=== PATIENT | male | born 1965 | race Caucasian/White ===

== ENCOUNTER → 2018-11-22 | Outpatient (CLI) | payer OTHER ==
--- NOTE | 2018-11-22 13:07 | NM ---
EXAMINATION TYPE: NM bone 3 phase DATE OF EXAM: 11/22/2018 COMPARISON: 2 views of the left ankle dated 11/08/2018 HISTORY: M 86.9, bone infection, ankle Triple phase bone scintigraphy was performed following the injection of 25.3 mCi Tc 99m MDP. Immedia te images and 3.5 hours post injection images acquired. FINDINGS: There is very subtle increased blood flow to the left distal tibia and blood THE left distal tibia. D elayed images demonstrate focal radiotracer uptake within the left tibia that is more avid than the r emaining sites of uptake on delayed imaging. Multifocal uptake of the right midfoot and hindfoot as w ell as left midfoot are likely on a degenerative basis. IMPRESSION: 1. Persistent focal uptake greater than background of the left distal tibia that would relate to oste omyelitis in the appropriate clinical setting. 2. Degenerative change of the bilateral hindfeet and mid feet, right greater than left.
== END | disposition home or self-care (01) ==
LOC: RADNMMAIN 07:07
PROVIDERS: ATTEND Internal Medicine Infectious Disease
DX: M89.8X7 Other specified disorders of bone, ankle and foot (principal)
CPT/HCPCS: 78315; A9503

== ENCOUNTER → 2019-08-16 | Outpatient (CLI) | payer OTHER ==
[2019-08-16 10:41] LABS: Basophils # (A) 0.1 k/uL (0-0.2); Basophils % (A) 1 %; Eosinophils # (A) 0.1 k/uL (0-0.7); Eosinophils % (A) 2 %; HGB 15.6 gm/dL (13.0-17.5); Lymphocytes # (A) 1.5 k/uL (1.0-4.8); Lymphocytes % (A) 23 %; MCH 30.9 pg (25.0-35.0); MCHC 33.1 g/dL (31.0-37.0); MCV 93.3 fL (80.0-100.0); Mean Platelet Volume 7.1; Monocytes # (A) 0.3 k/uL (0-1.0); Monocytes % (A) 5 %; Neutrophils # (A) 4.5 k/uL (1.3-7.7); Neutrophils % (A) 67 %; Platelet Count 197 k/uL (150-450); RBC 5.04 m/uL (4.30-5.90); WBC 6.7 k/uL (3.8-10.6)
[2019-08-16 10:51] LABS: Potassium 4.4 mmol/L (3.5-5.1)
== END | disposition home or self-care (01) ==
LOC: LABPAT 09:08
PROVIDERS: ATTEND Orthopaedic Surgery
DX: Z01.818 Encounter for other preprocedural examination (principal); T84.89XD Other specified complication of internal orthopedic prosthetic devices, implants and grafts, subsequent encounter
CPT/HCPCS: 36415; 80051; 85025

== ENCOUNTER 2019-08-19 08:00 | Observation (INO) | payer OTHER ==
[2019-08-17 15:19] VITALS: BMI 43.4
--- NOTE | 2019-08-18 20:58 | HP ---
HISTORY AND PHYSICAL DATE OF SURGERY: 08/19/2019 Yasir Luo is a 53-year-old patient seen with irritating hardware, left ankle, probable low-grade infective process. I recommended removal of the hardware. I did review the procedure, risks, complications, benefits, recovery. He was agreeable. Consent was obtained. PAST MEDICAL HISTORY: Asthma. PAST SURGICAL HISTORY: ORIF left ankle. DAILY MEDICATIONS: Currently on Keflex. ALLERGIES: NONE REPORTED. SOCIAL HISTORY: He denies current tobacco use; recently quit 02/2018. He currently is unemployed. PHYSICAL EVALUATION OF LEFT ANKLE: There is some discoloration laterally. There is tenderness along the lateral malleolus. He is able to move his ankle with some limited range of motion. He has good perfusion and sensation distally. Daniel's and Anoop' negative. IMAGING: Radiographs of the left ankle reveal severe tibiotalar osteoarthritis with hardware along the lateral and medial malleoli. IMPRESSION: 1. Irritating internal fixation of left lateral malleolus with probable low-grade infective process. 2. History of left ankle osteoarthritis. 3. Asthma. PLAN: Removal of irritating hardware, lateral malleolus left ankle. MMODL / IJN: [id number] /
[~2019-08-19 08:00] MED LIST: ceFAZolin 3 GM in SODIUM CHLORIDE 0.9% 100 ML IVPB ONE
[2019-08-19] MEDS ORDERED: LACTATED RINGERS 1,000 ML IV ONE (09:29)
[2019-08-19] MEDS ORDERED: PROPOFOL 10 MG/ML 20 ML VIAL IV ONE (10:29)
[2019-08-19] MEDS ORDERED: DEXAMETHASONE SOD PHOS (MDV) 100 MG/10 ML VIAL ONE (10:29)
[2019-08-19] MEDS ORDERED: SUCCINYLCHOLINE CHLORIDE VIAL 200 MG/10 ML VIAL IV ONE (10:29)
[2019-08-19] MEDS ORDERED: fentaNYL (PF) 50 MCG/ML 2 ML AMP ONE (10:29)
[2019-08-19] MEDS ORDERED: MIDAZOLAM 2 MG/2 ML VIAL ONE (10:29)
[2019-08-19] MEDS ORDERED: ONDANSETRON 4 MG/2 ML VIAL ONE (10:29)
[2019-08-19] MEDS ORDERED: BUPIVACAIN-EPI 0.25%-1:200,000 30 ML VIAL SQ ONE (10:29)
[2019-08-19] MEDS ORDERED: LIDOCAINE 1% INJ 10MG/ML (20 ML MDV) ONE (10:29)
[2019-08-19] MEDS ORDERED: ceFAZolin 1,000 MG in SODIUM CHLORIDE 0.9% 1,000 ML IRRIGATION ONE (10:45)
[2019-08-19] MEDS ORDERED: BUPIVACAINE (PF) 0.25% 30 ML VIAL SQ ONE (11:01)
--- NOTE | 2019-08-19 11:18 | P.OP ---
Date of Procedure: 08/19/19 Preoperative Diagnosis: Irritating hardware left lateral ankle with possible low-grade infection Postoperative Diagnosis: Same Procedure(s) Performed: Removal irritating hardware left ankle Anesthesia: NIKOLAS, local Surgeon: Ang Dexter Chief Clerk Shelter [facility]: Cirilo Lucas Estimated Blood Loss (ml): 11 Pathology: none sent Condition: stable Disposition: PACU Indications for Procedure: A 43-year-old patient who was seen with irritating hardware involving the left ankle lateral malleolus with concern for a low-grade infective process. I recommended removal of the hardware. He was agreeable. Consent was obtained. Operative Findings: See description of procedure Description of Procedure: The patient seen to the operative suite. The patient underwent a general anesthetic by the department of anesthesia. A well-padded tourniquet placed proximal left thigh. Left lower extremity was prepped and draped in the normal sterile orthopedic fashion. He received preoperative IV antibiotics. The to urniquet was insufflated to 300. An incision made over the previous cicatrix. I dissected down to the hardware. Deep cultures were obtained. All 6 screws and plate were removed without difficulty. There was no evidence for any deep infective process at this time. We irrigated wound out copiously. The subcu soft tissues were approximated with 2-0 Vicryl. This was proximal skin dale. I infiltrated the area with 20 mL quarter percent plain Marcaine for postoperative analgesia. Sterile dressings were applied. I released the tourniquet and we noted immediate capillary refill of all toes. Sterile Merlin bandages applied. The patient was awakened, transferred to a bed and recovery stable condition. Miguel KIMBLE assisted with the procedure.
[2019-08-19] MEDS: HYDROmorphone 1 MG/ML 1 ML SYRINGE IVP ONE ×2 (11:26→11:31)
[2019-08-19 11:47] VITALS: RESP 18
[2019-08-19] MEDS ORDERED: HYDROcodone/APAP 7.5-325MG 1 EACH TAB PO ONE (12:06)
[2019-08-19 13:05] VITALS: BP 126/78; PULSE 93; TEMP 97.7
== END 2019-08-19 13:41 | disposition home or self-care (01) ==
LOC: 4SSUR 10:15 → INTOOBSV 10:15 → UNDODISIN 13:41
PROVIDERS: ADMIT Orthopaedic Surgery; ATTEND Orthopaedic Surgery
PROC: 0SPG04Z Removal of Internal Fixation Device from Left Ankle Joint, Open Approach (ICD-10-PCS; principal; 2019-08-19 10:35)
DX: T84.89XA Other specified complication of internal orthopedic prosthetic devices, implants and grafts, initial encounter (principal); M19.072 Primary osteoarthritis, left ankle and foot; J45.909 Unspecified asthma, uncomplicated; Z03.818 Encounter for observation for suspected exposure to other biological agents ruled out; Z79.1 Long term (current) use of non-steroidal anti-inflammatories (NSAID); Z79.899 Other long term (current) drug therapy; Z87.891 Personal history of nicotine dependence
CPT/HCPCS: 20680; 87070; 87205; 87075; 87635; G0378; J2250; J0330; J0690 ×2; J2405; J2001; J3010; J1170; J1100; J2704

== ENCOUNTER → 2019-10-09 | Outpatient (CLI) | payer OTHER ==
[2019-10-09 12:58] LABS: Basophils # (A) 0.1 k/uL (0-0.2); Basophils % (A) 1 %; Eosinophils # (A) 0.2 k/uL (0-0.7); Eosinophils % (A) 2 %; HCT 47.9 % (39.0-53.0); HGB 15.4 gm/dL (13.0-17.5); Lymphocytes # (A) 1.8 k/uL (1.0-4.8); Lymphocytes % (A) 22 %; MCH 29.7 pg (25.0-35.0); MCHC 32.1 g/dL (31.0-37.0); MCV 92.6 fL (80.0-100.0); Mean Platelet Volume 6.9; Monocytes # (A) 0.5 k/uL (0-1.0); Monocytes % (A) 6 %; Neutrophils # (A) 5.5 k/uL (1.3-7.7); Neutrophils % (A) 67 %; Platelet Count 198 k/uL (150-450); RBC 5.18 m/uL (4.30-5.90); WBC 8.2 k/uL (3.8-10.6)
[2019-10-09 13:16] LABS: Potassium 4.2 mmol/L (3.5-5.1)
== END | disposition home or self-care (01) ==
LOC: LABPAT 11:48
PROVIDERS: ATTEND Orthopaedic Surgery
DX: Z01.818 Encounter for other preprocedural examination (principal); M23.91 Unspecified internal derangement of right knee
CPT/HCPCS: 36415; 80051; 85025

== ENCOUNTER → 2019-10-19 | Day surgery (SDC) | payer OTHER ==
[2019-10-17 09:08] VITALS: BMI 45.1
--- NOTE | 2019-10-18 16:57 | HP ---
HISTORY AND PHYSICAL DATE OF SURGERY: 10/19/2019 Yasir Luo is a 53-year-old gentleman seen with progressive right knee pain. We discussed options for treatment. He elected to proceed with arthroscopy. Consent was obtained. PAST MEDICAL HISTORY: Asthma. PAST SURGICAL HISTORY: Left ankle surgery. DAILY MEDICATIONS: None. ALLERGIES: NONE. SOCIAL HISTORY: He denies tobacco use. PHYSICAL EVALUATION OF THE RIGHT KNEE: Range of motion 0 to 125. Moderate to large effusion. Tenderness along the medial and lateral joint lines. Positive medial Yefri's. Positive lateral Yefri's. Ligaments stable. Hip rotation without pain. Distal neurovascular exam is intact. RADIOGRAPHS: Radiographs of the right knee revealed mild to moderate osteoarthritis. An MRI of the right knee revealed medial meniscal tear, lateral meniscal tear, osteoarthritis and joint effusion. IMPRESSION: 1. Internal derangement of the right knee with medial and lateral meniscal tears. 2. Right knee osteoarthritis. PLAN: Right knee arthroscopy with partial meniscectomy, partial synovectomy and debridement. MMODL / IJN: [id number] /
[~2019-10-19] MED LIST changes: +BUPIVACAINE (PF) 0.25% 30 ML VIAL SQ ONE; +DEXAMETHASONE SOD PHOSPHATE 10 MG/ML 1 ML VIAL IV ONE; +HYDROcodone/APAP 7.5-325MG 1 EACH TAB ONE; +HYDROcodone/APAP 7.5-325MG 1 EACH TAB PO ONE; +HYDROmorphone 0.5 MG/0.5 ML SYRINGE IVP PRN; +LACTATED RINGERS 1,000 ML IV SCH; +LIDOCAINE 1% (10MG/ML) FOR IV START INTRADERMA ONE; +LIDOCAINE 1% INJ 10MG/ML (20 ML MDV) ONE; +MIDAZOLAM 2 MG/2 ML VIAL ONE; +ONDANSETRON 4 MG/2 ML VIAL IVP ONE; +ONDANSETRON 4 MG/2 ML VIAL ONE; +PROPOFOL 10 MG/ML 20 ML VIAL IV ONE; +SUCCINYLCHOLINE CHLORIDE 100 MG/5 ML SYR IV ONE; +fentaNYL (PF) 50 MCG/ML 2 ML AMP ONE
--- NOTE | 2019-10-19 14:15 | P.OP ---
Date of Procedure: 10/19/19 Preoperative Diagnosis: Internal derangement right knee Postoperative Diagnosis: 1. Tear medial meniscus right knee 2. Tear lateral meniscus right knee 3. Grade 2 chondromalacia medial femoral condyle right knee 4. Reactive synovitis medial, lateral and suprapatellar compartments right knee Procedure(s) Performed: 1. Arthroscopic partial medial and lateral meniscectomy right knee 2. Arthroscopic chondroplasty medial femoral condyle right knee 3. Arthroscopic partial synovectomy medial, lateral and suprapatellar compartments right knee Anesthesia: KARLAA, local Surgeon: Ang Dexter Estimated Blood Loss (ml): 8 Pathology: none sent Condition: stable Disposition: PACU Indications for Procedure: 53-year-old patient seen with progressive right knee pain. After having treatment options discussed, he elected to proceed with arthroscopy. Operative Findings: See description of procedure Description of Procedure: Patient was taken to the operative suite. Patient underwent a general anesthetic by the department of anesthesia. Patient was given preoperative antibiotics. The left lower extremity was placed in a well-padded arthroscopic leg vitale. The left leg was prepped and draped in the normal sterile orthopedic fashion. A lateral parapatellar incision was made. Trochars were inserted. Arthroscopy was initiated. Suprapatellar pouch revealed diffuse thick reactive synovitis. The patellofemoral joint appeared to articulate congruently. There was grade 2/3 chondromalacia with no osteochondral tears present. The scope was guided into the medial gutter. No loose bodies or plica were identified. The scope was then guided into the medial compartment. A medial parapatellar incision was made. Trocar inserted followed by probe. There was a complex tear posterior medial meniscus. There were grade 2 chondromalacia changes medial femoral condyle with osteochondral flap tears present. There was thick reactive synovitis anteriorly. I performed a partial medial meniscectomy. I performed a chondroplasty of the medial femoral condyle. I performed a partial synovectomy. The residual meniscus was stable. The residual osteochondral surface was stable. There was good decompression was synovitis. Scope and probe were then guided into the intercondylar notch. Cruciates were identified, probed and found to be stable. The scope and probe were then guided into lateral compartment. Complex tear involving the anterior horn and midbody lateral meniscus. There were grade 2 chondral moist changes of the lateral tibial plateau. There was thick reactive synovitis anteriorly. I performed a partial lateral meniscectomy. I performed a partial synovectomy. The residual meniscus was stable. There was good decompression of the synovitis. The scope was in guided back into the suprapatellar compartment. Used a motorized shaver into the super compartment. I debrided some piecemeal fragments of meniscus I encountered. I performed a partial synovectomy. The shaver was removed. I now took one more look on the entire knee, no residual debris. Instruments were now removed from the joint. The joint was infiltrated with .25% Marcaine. Sutures were utilized to approximate the portal sites. Sterile dressings were applied. The patient was placed into a TRIP hose. No tourniquet was utilized. The patient was awakened, transferred to a bed and taken to recovery stable satisfactory condition.
[2019-10-20 10:06] VITALS: BP 140/78; PULSE 74; RESP 16; TEMP 96.8
== END | disposition home or self-care (01) ==
LOC: OR 10:25
PROVIDERS: ATTEND Orthopaedic Surgery
DX: M23.221 Derangement of posterior horn of medial meniscus due to old tear or injury, right knee (principal); M23.241 Derangement of anterior horn of lateral meniscus due to old tear or injury, right knee; M94.261 Chondromalacia, right knee; M65.861 Other synovitis and tenosynovitis, right lower leg; M17.11 Unilateral primary osteoarthritis, right knee; J45.30 Mild persistent asthma, uncomplicated; M19.90 Unspecified osteoarthritis, unspecified site; K08.409 Partial loss of teeth, unspecified cause, unspecified class; Z98.890 Other specified postprocedural states; Z87.891 Personal history of nicotine dependence; Z79.891 Long term (current) use of opiate analgesic; Z79.899 Other long term (current) drug therapy; Z90.89 Acquired absence of other organs
CPT/HCPCS: 29880; J2250; J1100; J0690; J2405; J2001; J3010; J0330; J2704